=== PATIENT | male | born 1965 | race Two or more races ===

== ENCOUNTER 2023-11-26 12:17 | Inpatient (IN) | payer MEDICAID, OTHER ==
[~2023-11-26] VITALS: Ht 167.6 cm; Wt 82.8 kg
[~2023-11-26 12:17] MED LIST: ACET650T12 PO; CIPR500T4 PO; HYDR-4798 PO
[2023-11-26] MEDS: metroNIDAZOLE 500MG/100ML 100 ML IV ONE (13:30)
[2023-11-26 13:43] LABS: Basophils # (auto) 0.1 10 ^3/uL (0-0.2); Basophils % (auto) 0.7 % (0.0-2.0); Eosinophils # (auto) 0.2 10 ^3/uL (0-0.8); Eosinophils % (auto) 2.7 % (0.0-7.0); Hematocrit 38.7 % (41.0-53.0); Hemoglobin 13.2 g/dL (13.5-17.5); Lymphocytes # (auto) 0.8 10 ^3/uL (0.4-5.4); Lymphocytes % (auto) 11.7 % (10.0-50.0); Mean Corpuscular Hemoglobin 30.1 pg (28.0-32.0); Mean Corpuscular Hgb Conc. 34.1 g/dL (32.0-36.0); Mean Corpuscular Volume 88.2 fL (80.0-100.0); Monocytes # (auto) 0.7 10 ^3/uL (0-1.3); Neutrophils # (auto) 5.5 10 ^3/uL (1.6-8.6); Neutrophils % (auto) 75.9 % (37.0-80.0); Red Blood Cells 4.39 10^6/uL (4.5-5.90); Red Cell Distribution Width 13.7 % (11.8-14.3); White Blood Cell 7.2 10^3/uL (4.4-10.8)
[2023-11-26 14:02] LABS: Alanine Aminotransferase 13 U/L (7-40); Albumin 4.3 g/dL (3.2-4.8); Alkaline Phosphatase 107 U/L (46-116); Anion Gap 3 (5-15); Aspartate Aminotransferase 10 U/L (13-40); BUN/Creatinine Ratio 20.4 (10.0-20.0); Blood Urea Nitrogen 21 mg/dL (9-23); Calcium 9.8 mg/dL (8.5-10.1); Carbon Dioxide 29 mmol/L (20-30); Chloride 106 mmol/L (98-107); Glucose 248 mg/dL (74-106); Sodium 138 mmol/L (136-145)
[2023-11-26 14:03] LABS: Bilirubin, Total 0.9 mg/dL (0.2-1.0); Total Protein 7.2 g/dL (5.7-8.2)
[2023-11-26] MEDS ORDERED: LOSA-535 PO (14:28)
[2023-11-26] MEDS ORDERED: DEXTROSE (50%) 50ML SYRG IV PRN (14:30)
[2023-11-26] MEDS ORDERED: ONDANSETRON HCL 4 MG/2 ML VIAL IV PRN (14:30)
[2023-11-26] MEDS ORDERED: ACETAMINOPHEN 325 MG TAB PO PRN (14:30)
[2023-11-26 15:38] LABS: INR 0.98 (0.9-1.15); Prothrombin Time 10.4 sec (9.3-11.8)
[2023-11-26 15:42] VITALS: PULSE 82
[2023-11-26] MEDS: LIDOCAINE W/ EPINEPHRINE 1% 20ML VIAL ONE (16:49)
[2023-11-26] MEDS ORDERED: fentaNYL CITRATE 5 ML ONE (16:56)
[2023-11-26] MEDS ORDERED: MIDAZOLAM HCL 2MG/2ML 2ml VIAL (1mg/ml) ONE (16:56)
[2023-11-26] MEDS ORDERED: PROPOFOL 10 MG/ML 20 ML IV ONE (16:57)
[2023-11-26] MEDS: ceFAZolin 1GM VL ONE (16:59)
[2023-11-26] MEDS ORDERED: METOCLOPRAMIDE HCL 5MG/ml INJ 2ml VIAL ONE (17:00)
[2023-11-26] MEDS ORDERED: ONDANSETRON HCL 4 MG/2 ML VIAL ONE (17:00)
[2023-11-26] MEDS: CIPROFLOXACIN 400MG/200ML 200 ML IV ONE (17:01)
[2023-11-26] MEDS ORDERED: ePHEDrine SULFATE 50 MG/ML AMP ONE (17:17)
[2023-11-26] MEDS ORDERED: BACITRACIN TOP OINT 1 UD PKG TOP ONE (18:39)
[2023-11-26 18:58] VITALS: PULSE 101; RESP 15; O2SAT 99
[2023-11-26] MEDS ORDERED: ONDANSETRON HCL 4 MG/2 ML VIAL IV ONE (19:15)
[2023-11-26] MEDS: HYDROmorphone HCL 2 MG/ML VL/or syr IV PRN (19:31)
[2023-11-26] MEDS: hydrALAZINE HCL 20 MG/ML VL IV PRN ×2 (19:58→22:31)
[2023-11-26 21:00] VITALS: BP 165/105; PULSE 95; RESP 17; TEMP 97.4; O2SAT 100
[2023-11-26 21:15] VITALS: PULSE 95; RESP 17; O2SAT 100
[2023-11-26 21:16] VITALS: BP 165/101; PULSE 95; RESP 19; TEMP 97.4; O2SAT 100
[2023-11-26] MEDS: MORPHINE SULFATE INJ 2 MG/ml SYRG IV PRN (21:19)
[2023-11-26] MEDS: ACCU-CHEK COMFORT CURVE STRIP VI SCH (21:32)
[2023-11-26] MEDS: InsuLIN REG 1unit/0.01ml Soln (100units/ml) SC SCH (21:35)
[2023-11-27] VITALS (8 sets, daily range): BP systolic 101–134; BP diastolic 57–78; PULSE 77–88; RESP 17–19; TEMP 97.9–98.3; O2SAT 91–97
[2023-11-27] MEDS: HYDROcodone-ACET 5/325MG TAB PO PRN (02:32)
[2023-11-27] MEDS: ceFAZolin 2 GM/D5W50ml 50 ML IV ONE (03:45)
[2023-11-27 07:12] LABS: Basophils # (auto) 0 10 ^3/uL (0-0.2); Basophils % (auto) 0.5 % (0.0-2.0); Eosinophils # (auto) 0.1 10 ^3/uL (0-0.8); Eosinophils % (auto) 0.8 % (0.0-7.0); Hematocrit 35.8 % (41.0-53.0); Hemoglobin 12.3 g/dL (13.5-17.5); Lymphocytes # (auto) 0.7 10 ^3/uL (0.4-5.4); Lymphocytes % (auto) 9.1 % (10.0-50.0); Mean Corpuscular Hemoglobin 30.2 pg (28.0-32.0); Mean Corpuscular Hgb Conc. 34.2 g/dL (32.0-36.0); Mean Corpuscular Volume 88.4 fL (80.0-100.0); Monocytes # (auto) 0.8 10 ^3/uL (0-1.3); Monocytes % (auto) 10.2 % (0.0-12.0); Neutrophils # (auto) 6.3 10 ^3/uL (1.6-8.6); Neutrophils % (auto) 79.4 % (37.0-80.0); Red Blood Cells 4.05 10^6/uL (4.5-5.90); Red Cell Distribution Width 13.5 % (11.8-14.3); White Blood Cell 7.9 10^3/uL (4.4-10.8)
[2023-11-27 07:30] LABS: Alanine Aminotransferase 11 U/L (7-40); Alkaline Phosphatase 86 U/L (46-116); Calcium 8.9 mg/dL (8.5-10.1)
[2023-11-27 07:31] LABS: Albumin 3.7 g/dL (3.2-4.8); Anion Gap 5 (5-15); Aspartate Aminotransferase 9 U/L (13-40); BUN/Creatinine Ratio 16.5 (10.0-20.0); Blood Urea Nitrogen 18 mg/dL (9-23); Carbon Dioxide 29 mmol/L (20-30); Chloride 104 mmol/L (98-107); Glucose 283 mg/dL (74-106); Potassium 3.9 mmol/L (3.5-5.1); Sodium 138 mmol/L (136-145); Total Protein 6.2 g/dL (5.7-8.2)
[2023-11-27 08:15] LABS: Urine Bacteria None Seen /hpf (None Seen)
[2023-11-27 08:30] LABS: Urine Blood Negative /uL (Negative); Urine Clarity Clear (Clear); Urine Color Light-Yellow (Yellow); Urine Mucus FEW (None Seen); Urine Protein, UAD 1+ (Negative); Urine Specific Gravity 1.017 (1.001-1.035); Urine Urobilinogen Normal (Negative); Urine WBC 7 /hpf (0 - 3)
[2023-11-27] MEDS: PANTOPRAZOLE 40 MG/10 ML VIAL INJ IV SCH (08:36)
[2023-11-27] MEDS: LOSARTAN POTASSIUM 50 MG TAB PO SCH (08:39)
[2023-11-27] MEDS ORDERED: PATIENTS OWN MEDICATION (Losartan Potassium 1 TAB) PO SCH (10:00)
[2023-11-27] MEDS: INSULIN LANTUS (GLARGINE) 1 /0.01ml (100units/ml) SC SCH (16:00)
[2023-11-27] MEDS ORDERED: INSU1INJ19 SC (17:35)
[2023-11-27] MEDS ORDERED: CHOL50004 PO (17:35)
[2023-11-27] MEDS ORDERED: DAPA1TAB4 PO (17:35)
[2023-11-27] MEDS ORDERED: METF-370 PO (17:35)
[2023-11-27] MEDS: DOCUSATE SOD 100 MG CAP PO PRN (21:47)
[2023-11-28 01:00] VITALS: BP 125/68; PULSE 90; RESP 18; TEMP 98.1; O2SAT 93
[2023-11-28 05:00] VITALS: BP 118/68; PULSE 88; RESP 18; TEMP 98.4; O2SAT 92
[2023-11-28] MEDS ORDERED: INSULIN LANTUS (GLARGINE) 1 /0.01ml (100units/ml) SC SCH (07:00)
[2023-11-28 07:06] LABS: Basophils # (auto) 0 10 ^3/uL (0-0.2); Basophils % (auto) 0.3 % (0.0-2.0); Eosinophils # (auto) 0.1 10 ^3/uL (0-0.8); Eosinophils % (auto) 1.1 % (0.0-7.0); Hematocrit 35.9 % (41.0-53.0); Hemoglobin 12.1 g/dL (13.5-17.5); Lymphocytes # (auto) 0.7 10 ^3/uL (0.4-5.4); Lymphocytes % (auto) 8.1 % (10.0-50.0); Mean Corpuscular Hemoglobin 29.9 pg (28.0-32.0); Mean Corpuscular Hgb Conc. 33.6 g/dL (32.0-36.0); Monocytes # (auto) 0.9 10 ^3/uL (0-1.3); Monocytes % (auto) 10.1 % (0.0-12.0); Neutrophils # (auto) 7.2 10 ^3/uL (1.6-8.6); Neutrophils % (auto) 80.4 % (37.0-80.0); Red Blood Cells 4.04 10^6/uL (4.5-5.90); Red Cell Distribution Width 13.8 % (11.8-14.3)
[2023-11-28 07:16] LABS: Albumin 3.7 g/dL (3.2-4.8); Alkaline Phosphatase 85 U/L (46-116); Calcium 9.2 mg/dL (8.5-10.1); Chloride 106 mmol/L (98-107)
[2023-11-28 07:17] LABS: Anion Gap 2 (5-15); Aspartate Aminotransferase 9 U/L (13-40); BUN/Creatinine Ratio 20.4 (10.0-20.0); Blood Urea Nitrogen 21 mg/dL (9-23); Carbon Dioxide 28 mmol/L (20-30); Potassium 3.9 mmol/L (3.5-5.1); Sodium 136 mmol/L (136-145); Total Protein 6.2 g/dL (5.7-8.2)
[2023-11-28 07:18] LABS: Alanine Aminotransferase < 9 U/L (7-40); Glucose 132 mg/dL (74-106)
[2023-11-28 09:00] VITALS: BP 106/69; PULSE 95; RESP 16; TEMP 97.8; O2SAT 96
[2023-11-28 12:05] VITALS: BP 136/86; TEMP 36.9
[2023-11-28 13:00] VITALS: BP 126/69; PULSE 90; RESP 16; TEMP 97; O2SAT 95
== END 2023-11-28 16:00 | disposition home or self-care (01) | DRG 483 ==
LOC: ER 12:17 → OVERFLOW 14:28 → WEST WING 21:09
PROVIDERS: ADMIT Internal Medicine Pulmonary Disease; ATTEND Internal Medicine Pulmonary Disease
PROC: 0VPS0JZ Removal of Synthetic Substitute from Penis, Open Approach (ICD-10-PCS; 2023-11-26)
PROC: 0VUS0JZ Supplement Penis with Synthetic Substitute, Open Approach (ICD-10-PCS; principal; 2023-11-26 17:01)
DX: T83.490A Other mechanical complication of implanted penile prosthesis, initial encounter (principal); T81.31XA Disruption of external operation (surgical) wound, not elsewhere classified, initial encounter; T83.719A Erosion of other prosthetic materials to surrounding organ or tissue, initial encounter; E11.9 Type 2 diabetes mellitus without complications; I10 Essential (primary) hypertension; E78.5 Hyperlipidemia, unspecified; Z79.4 Long term (current) use of insulin; Z79.899 Other long term (current) drug therapy; Z90.49 Acquired absence of other specified parts of digestive tract; Y84.8 Other medical procedures as the cause of abnormal reaction of the patient, or of later complication, without mention of misadventure at the time of the procedure; Y92.89 Other specified places as the place of occurrence of the external cause
CPT/HCPCS: 36415; 80053; 81001; 82962; 83036; 83605; 85025; 85610; 85730; C9113; G0378; J0690; J1815; J2250; J2405; J2704

== ENCOUNTER 2023-12-18 17:41 | Emergency (ER) | payer MEDICAID ==
[~2023-12-18] VITALS: Ht 167.6 cm; Wt 85.5 kg
[~2023-12-18 17:41] MED LIST changes: +CHOL50004 PO; +DAPA1TAB4 PO; +INSU1INJ19 SC; +LOSA-535 PO; +METF-370 PO
[2023-12-18 19:16] LABS: Urine Bacteria None Seen /hpf (None Seen)
[2023-12-18 19:31] LABS: Urine Blood 1+ /uL (Negative); Urine Clarity Clear (Clear); Urine Color Yellow (Yellow); Urine Mucus FEW (None Seen); Urine Protein, UAD 2+ (Negative); Urine Specific Gravity 1.033 (1.001-1.035); Urine Urobilinogen 4 mg/dL (Negative); Urine WBC 1 /hpf (0 - 3)
[2023-12-18] MEDS ORDERED: HYDR-4798 PO (21:05)
[2023-12-18] MEDS: ONDANSETRON ODT 4 MG TAB PO ONE (21:40)
[2023-12-18 21:44] VITALS: BP 168/96; PULSE 86; RESP 16; TEMP 98; O2SAT 95
[2023-12-18] MEDS: MORPHINE SULFATE 4 MG/ML SYR/VIAL IM ONE (21:44)
== END 2023-12-18 21:44 | disposition home or self-care (01) ==
LOC: ER 17:41
DX: N48.89 Other specified disorders of penis (principal); I10 Essential (primary) hypertension; E11.9 Type 2 diabetes mellitus without complications; Z79.899 Other long term (current) drug therapy
CPT/HCPCS: 81001; 96372; 99283; J2270; Q0162

== ENCOUNTER 2023-12-19 22:12 | Inpatient (IN) | payer MEDICAID ==
[~2023-12-19] VITALS: Ht 167.6 cm; Wt 82.9 kg
[2023-12-19 22:40] VITALS: PULSE 75; RESP 20; O2SAT 91
[2023-12-19 23:31] LABS: Basophils # (auto) 0.1 10 ^3/uL (0-0.2); Basophils % (auto) 0.6 % (0.0-2.0); Eosinophils # (auto) 0 10 ^3/uL (0-0.8); Eosinophils % (auto) 0.5 % (0.0-7.0); Hematocrit 29.2 % (41.0-53.0); Hemoglobin 9.8 g/dL (13.5-17.5); Lymphocytes # (auto) 0.4 10 ^3/uL (0.4-5.4); Lymphocytes % (auto) 3.6 % (10.0-50.0); Mean Corpuscular Hemoglobin 29.4 pg (28.0-32.0); Mean Corpuscular Hgb Conc. 33.7 g/dL (32.0-36.0); Mean Corpuscular Volume 87.1 fL (80.0-100.0); Monocytes % (auto) 10.1 % (0.0-12.0); Neutrophils # (auto) 8.8 10 ^3/uL (1.6-8.6); Neutrophils % (auto) 85.2 % (37.0-80.0); Red Blood Cells 3.35 10^6/uL (4.5-5.90); Red Cell Distribution Width 14.5 % (11.8-14.3); White Blood Cell 10.3 10^3/uL (4.4-10.8)
[2023-12-19 23:51] LABS: Alanine Aminotransferase 52 U/L (7-40); Alkaline Phosphatase 534 U/L (46-116); Anion Gap 7 (5-15); Aspartate Aminotransferase 29 U/L (13-40); BUN/Creatinine Ratio 19.2 (10.0-20.0); Blood Urea Nitrogen 25 mg/dL (9-23); Calcium 8.9 mg/dL (8.7-10.4); Carbon Dioxide 27 mmol/L (20-30); Chloride 97 mmol/L (98-107); Potassium 4.2 mmol/L (3.5-5.1); Sodium 131 mmol/L (136-145)
[2023-12-19 23:52] LABS: Albumin 3.4 g/dL (3.2-4.8); Bilirubin, Total 0.9 mg/dL (0.2-1.0); Total Protein 6.3 g/dL (5.7-8.2)
[2023-12-19 23:53] LABS: Urine Bacteria None Seen /hpf (None Seen)
[2023-12-20 00:03] LABS: Glucose 513 mg/dL (74-106)
[2023-12-20 00:07] LABS: Urine Blood 1+ /uL (Negative); Urine Clarity Clear (Clear); Urine Color Yellow (Yellow); Urine Protein, UAD 2+ (Negative); Urine Specific Gravity 1.033 (1.001-1.035); Urine Urobilinogen 2 mg/dL (Negative); Urine WBC 1 /hpf (0 - 3)
[2023-12-20] MEDS ORDERED: InsuLIN REG 1unit/0.01ml Soln (100units/ml) IV ONE (00:30)
[2023-12-20 00:39] LABS: INR 1.12 (0.9-1.15); Partial Thromboplastin Time 25.9 SEC (24.5-34.5); Prothrombin Time 11.8 sec (9.3-11.8)
[2023-12-20] MEDS: FUROSEMIDE 20 MG/2 ML VIAL IV ONE (00:46)
[2023-12-20] MEDS: InsuLIN REG 1unit/0.01ml Soln (100units/ml) IV ONE (00:46)
[2023-12-20] MEDS: ONDANSETRON HCL 4 MG/2 ML VIAL IV ONE (00:46)
[2023-12-20] MEDS: MORPHINE SULFATE 4 MG/ML SYR/VIAL IV ONE (00:46)
[2023-12-20] MEDS: IOHEXOL 350 MG/ML 100ML IJ ONE (01:45)
[2023-12-20] MEDS: ASPirin 81 mg TAB PO ONE (03:32)
[2023-12-20] MEDS: NITROGLYCERIN 2% OINT 1GM PKG TD ONE (03:38)
[2023-12-20 07:25] VITALS: PULSE 65; RESP 14; O2SAT 94
[2023-12-20] MEDS ORDERED: MORPHINE SULFATE INJ 2 MG/ml SYRG IV PRN (10:30)
[2023-12-20] MEDS ORDERED: ACETAMINOPHEN 325 MG TAB PO PRN (10:30)
[2023-12-20] MEDS ORDERED: NITROGLYCERIN 0.4 MG SL TAB SL PRN (10:30)
[2023-12-20] MEDS ORDERED: DEXTROSE (50%) 50ML SYRG IV PRN (10:30)
[2023-12-20 10:55] LABS: Triglycerides 79 mg/dL (< 150)
[2023-12-20 10:56] LABS: LDL Cholesterol 76 mg/dL (< 100)
[2023-12-20 10:57] LABS: Cholesterol 127 mg/dL (< 200); HDL Cholesterol 35 mg/dL (40-59)
[2023-12-20 11:06] LABS: Basophils # (auto) 0.1 10 ^3/uL (0-0.2); Basophils % (auto) 0.6 % (0.0-2.0); Eosinophils # (auto) 0.1 10 ^3/uL (0-0.8); Eosinophils % (auto) 1.3 % (0.0-7.0)
[2023-12-20 11:08] LABS: Hematocrit 29.3 % (41.0-53.0); Lymphocytes # (auto) 0.5 10 ^3/uL (0.4-5.4); Lymphocytes % (auto) 4.3 % (10.0-50.0); Mean Corpuscular Hemoglobin 29.8 pg (28.0-32.0); Mean Corpuscular Hgb Conc. 34.1 g/dL (32.0-36.0); Mean Corpuscular Volume 87.3 fL (80.0-100.0); Monocytes # (auto) 1.1 10 ^3/uL (0-1.3); Monocytes % (auto) 10.1 % (0.0-12.0); Neutrophils # (auto) 9.2 10 ^3/uL (1.6-8.6); Neutrophils % (auto) 83.7 % (37.0-80.0); Nucleated Red Blood Cells % 0.1 %; Red Blood Cells 3.36 10^6/uL (4.5-5.90); Red Cell Distribution Width 14.2 % (11.8-14.3); White Blood Cell 10.9 10^3/uL (4.4-10.8)
[2023-12-20 11:10] LABS: Chloride 100 mmol/L (98-107); Potassium 4.4 mmol/L (3.5-5.1); Sodium 133 mmol/L (136-145)
[2023-12-20 11:11] LABS: Anion Gap 5 (5-15); Carbon Dioxide 28 mmol/L (20-30)
[2023-12-20 11:12] LABS: Calcium 8.7 mg/dL (8.5-10.1)
[2023-12-20 11:17] LABS: BUN/Creatinine Ratio 15.1 (10.0-20.0); Blood Urea Nitrogen 18 mg/dL (9-23)
[2023-12-20 11:18] LABS: Glucose 332 mg/dL (74-106)
[2023-12-20] MEDS: ACCU-CHEK COMFORT CURVE STRIP VI SCH (11:30)
[2023-12-20] MEDS: InsuLIN REG 1unit/0.01ml Soln (100units/ml) SC SCH (12:29)
[2023-12-20] MEDS: ASPirin 325 MG TAB PO ONE (12:58)
[2023-12-20 18:56] LABS: COVID19 ANTIGEN SOFIA FIA NEGATIVE (NEGATIVE); Rapid Influenza A Negative (Negative); Rapid Influenza B Negative (Negative)
[2023-12-20] MEDS: hydrALAZINE HCL 20 MG/ML VL IV PRN (19:10)
[2023-12-20] MEDS: HYDROcodone-ACET 5/325MG TAB PO PRN (20:28)
[2023-12-20 21:00] VITALS: BP 128/65; PULSE 89; RESP 18; TEMP 98; O2SAT 97
[2023-12-21] VITALS (9 sets, daily range): BP systolic 115–159; BP diastolic 44–86; PULSE 73–92; RESP 15–22; TEMP 97.3–98.5; O2SAT 93–97
[2023-12-21 06:24] LABS: Eosinophils # (auto) 0.1 10 ^3/uL (0-0.8); Eosinophils % (auto) 1.2 % (0.0-7.0); Hemoglobin 10.1 g/dL (13.5-17.5); Monocytes # (auto) 1.1 10 ^3/uL (0-1.3); Nucleated Red Blood Cells % 0.1 %
[2023-12-21 06:27] LABS: Basophils # (auto) 0.1 10 ^3/uL (0-0.2); Basophils % (auto) 0.5 % (0.0-2.0); Hematocrit 29.6 % (41.0-53.0); Lymphocytes # (auto) 0.6 10 ^3/uL (0.4-5.4); Lymphocytes % (auto) 5.9 % (10.0-50.0); Mean Corpuscular Hemoglobin 29.3 pg (28.0-32.0); Mean Corpuscular Hgb Conc. 34.1 g/dL (32.0-36.0); Mean Corpuscular Volume 85.9 fL (80.0-100.0); Monocytes % (auto) 10.3 % (0.0-12.0); Neutrophils % (auto) 82.1 % (37.0-80.0); Red Blood Cells 3.45 10^6/uL (4.5-5.90); Red Cell Distribution Width 14.8 % (11.8-14.3)
[2023-12-21 06:41] LABS: Alanine Aminotransferase 46 U/L (7-40); Albumin 3.5 g/dL (3.2-4.8); Alkaline Phosphatase 591 U/L (46-116); Anion Gap 6 (5-15); BUN/Creatinine Ratio 21.8 (10.0-20.0); Blood Urea Nitrogen 26 mg/dL (9-23); Carbon Dioxide 28 mmol/L (20-30); Chloride 102 mmol/L (98-107); Potassium 3.9 mmol/L (3.5-5.1); Sodium 136 mmol/L (136-145)
[2023-12-21 06:42] LABS: Aspartate Aminotransferase 31 U/L (13-40); Total Protein 6.4 g/dL (5.7-8.2)
[2023-12-21 06:44] LABS: Glucose 172 mg/dL (74-106)
[2023-12-21] MEDS: ENOXAPARIN SOD 40 MG/0.4 ML SYRINGE SC SCH (09:16)
[2023-12-21] MEDS: ASPirin 81 mg TAB PO SCH (09:16)
[2023-12-21] MEDS: LOSARTAN POTASSIUM 50 MG TAB PO SCH (09:16)
[2023-12-21 09:22] LABS: Amphetamine Screen, Urine Neg (NEGATIVE); Barbiturate Scree,Urine Neg (NEGATIVE); Benzodiazephine Screen, Urine Neg (NEGATIVE); Cocaine Screen, Urine Neg (NEGATIVE); Opiate Scree,Urine Pos (NEGATIVE); Phencyclidine Screen, Urine Neg (NEGATIVE)
[2023-12-21 09:23] LABS: Cannabinoid Screen, Urine Neg (NEGATIVE)
[2023-12-21] MEDS ORDERED: DEXTROSE (50%) 50ML SYRG IV PRN (15:45)
[2023-12-21] MEDS: FUROSEMIDE 40 MG/4 ML VIAL IV SCH (16:57)
[2023-12-21] MEDS: ACCU-CHEK COMFORT CURVE STRIP VI SCH (16:58)
[2023-12-21] MEDS: InsuLIN REG 1unit/0.01ml Soln (100units/ml) SC SCH ×2 (16:59→21:17)
[2023-12-21] MEDS: INSULIN LANTUS (GLARGINE) 1 /0.01ml (100units/ml) SC SCH (21:18)
[2023-12-22] VITALS (9 sets, daily range): BP systolic 104–177; BP diastolic 48–96; PULSE 76–90; RESP 16–20; TEMP 97.4–98.6; O2SAT 94–97
[2023-12-22] MEDS: CLOTRIMAZOLE 1 % CREAM 15GM TOP SCH (13:00)
[2023-12-22] MEDS: MAGNESIUM CITRATE SOLUTION 300 ML BTL PO ONE (13:00)
[2023-12-22] MEDS ORDERED: DEXTROSE (50%) 50ML SYRG IV PRN (19:30)
[2023-12-22] MEDS: InsuLIN REG 1unit/0.01ml Soln (100units/ml) SC SCH (20:00)
[2023-12-22] MEDS: ACCU-CHEK COMFORT CURVE STRIP VI SCH (20:00)
[2023-12-22] MEDS: DOCUSATE SOD 100 MG CAP PO SCH (21:24)
[2023-12-22] MEDS: FUROSEMIDE 40 MG/4 ML VIAL IV SCH (21:25)
[2023-12-23] VITALS (9 sets, daily range): BP systolic 113–191; BP diastolic 47–111; PULSE 75–96; RESP 16–20; TEMP 97.9–98.6; O2SAT 95–97
[2023-12-23 08:25] LABS: Eosinophils # (auto) 0.1 10 ^3/uL (0-0.8); Hemoglobin 10.6 g/dL (13.5-17.5); Lymphocytes # (auto) 0.5 10 ^3/uL (0.4-5.4); Mean Corpuscular Hemoglobin 28.6 pg (28.0-32.0); Neutrophils # (auto) 8.5 10 ^3/uL (1.6-8.6); Red Blood Cells 3.72 10^6/uL (4.5-5.90)
[2023-12-23 08:28] LABS: Basophils # (auto) 0 10 ^3/uL (0-0.2); Basophils % (auto) 0.4 % (0.0-2.0); Eosinophils % (auto) 0.6 % (0.0-7.0); Hematocrit 31.8 % (41.0-53.0); Lymphocytes % (auto) 4.6 % (10.0-50.0); Mean Corpuscular Hgb Conc. 33.4 g/dL (32.0-36.0); Mean Corpuscular Volume 85.5 fL (80.0-100.0); Monocytes % (auto) 9.6 % (0.0-12.0); Neutrophils % (auto) 84.8 % (37.0-80.0); Red Cell Distribution Width 14.7 % (11.8-14.3); White Blood Cell 10.1 10^3/uL (4.4-10.8)
[2023-12-23] MEDS ORDERED: DEXTROSE (50%) 50ML SYRG IV PRN ×3 (08:30→13:30)
[2023-12-23 08:56] LABS: Alanine Aminotransferase 41 U/L (7-40); Albumin 3.6 g/dL (3.2-4.8); Alkaline Phosphatase 550 U/L (46-116); Anion Gap 5 (5-15); Aspartate Aminotransferase 20 U/L (13-40); BUN/Creatinine Ratio 22.2 (10.0-20.0); Blood Urea Nitrogen 24 mg/dL (9-23); Calcium 9.3 mg/dL (8.7-10.4); Carbon Dioxide 31 mmol/L (20-30); Chloride 99 mmol/L (98-107); Glucose 176 mg/dL (74-106); Potassium 3.9 mmol/L (3.5-5.1); Sodium 135 mmol/L (136-145)
[2023-12-23 08:57] LABS: Bilirubin, Total 0.8 mg/dL (0.2-1.0); Total Protein 6.6 g/dL (5.7-8.2)
[2023-12-23] MEDS ORDERED: InsuLIN REG 1unit/0.01ml Soln (100units/ml) SC SCH (12:00)
[2023-12-23] MEDS: ACCU-CHEK COMFORT CURVE STRIP VI SCH ×3 (12:00→17:54)
[2023-12-23] MEDS: InsuLIN REG 1unit/0.01ml Soln (100units/ml) SC SCH ×3 (12:01→22:08)
[2023-12-23] MEDS: NIFEdipine ER 30 MG TAB PO ONE (17:53)
[2023-12-23] MEDS ORDERED: INSULIN LANTUS (GLARGINE) 1 /0.01ml (100units/ml) SC SCH (22:00)
[2023-12-24] VITALS (7 sets, daily range): BP systolic 138–150; BP diastolic 64–82; PULSE 73–88; RESP 17–20; TEMP 97.4–98; O2SAT 95–98
[2023-12-24 07:21] LABS: Basophils # (auto) 0.1 10 ^3/uL (0-0.2); Hemoglobin 10.7 g/dL (13.5-17.5); Lymphocytes # (auto) 0.6 10 ^3/uL (0.4-5.4); Mean Corpuscular Hemoglobin 29.4 pg (28.0-32.0); Mean Corpuscular Hgb Conc. 34.1 g/dL (32.0-36.0); Monocytes # (auto) 0.9 10 ^3/uL (0-1.3); Neutrophils # (auto) 6.4 10 ^3/uL (1.6-8.6); White Blood Cell 8.3 10^3/uL (4.4-10.8)
[2023-12-24 07:22] LABS: Basophils % (auto) 0.9 % (0.0-2.0); Eosinophils # (auto) 0.2 10 ^3/uL (0-0.8); Eosinophils % (auto) 2.7 % (0.0-7.0); Hematocrit 31.2 % (41.0-53.0); Lymphocytes % (auto) 7.4 % (10.0-50.0); Mean Corpuscular Volume 86.3 fL (80.0-100.0); Monocytes % (auto) 11.3 % (0.0-12.0); Neutrophils % (auto) 77.7 % (37.0-80.0); Red Blood Cells 3.62 10^6/uL (4.5-5.90); Red Cell Distribution Width 14.7 % (11.8-14.3)
[2023-12-24 07:38] LABS: Alanine Aminotransferase 31 U/L (7-40); Albumin 3.4 g/dL (3.2-4.8); Alkaline Phosphatase 445 U/L (46-116); Anion Gap 6 (5-15); Aspartate Aminotransferase 15 U/L (13-40); Bilirubin, Total 0.7 mg/dL (0.2-1.0); Blood Urea Nitrogen 23 mg/dL (9-23); Calcium 9.4 mg/dL (8.7-10.4); Carbon Dioxide 31 mmol/L (20-30); Chloride 99 mmol/L (98-107); Glucose 121 mg/dL (74-106); Sodium 136 mmol/L (136-145); Total Protein 6.4 g/dL (5.7-8.2)
[2023-12-24] MEDS: NIFEdipine ER 30 MG TAB PO SCH (09:16)
[2023-12-24 19:18] LABS: Body Fluid Polymorphonuclear 30 % (0-25); Body Fluid Red Blood Cells 255 CUMM (0-2000); Body Fluid White Blood Cells 208 CUMM (0-200)
[2023-12-25] VITALS (8 sets, daily range): BP systolic 115–158; BP diastolic 68–85; PULSE 74–83; RESP 16–18; TEMP 97.6–98.8; O2SAT 93–96
[2023-12-25 07:55] LABS: Basophils # (auto) 0.1 10 ^3/uL (0-0.2); Hematocrit 33.9 % (41.0-53.0); Hemoglobin 11.5 g/dL (13.5-17.5); Monocytes # (auto) 0.8 10 ^3/uL (0-1.3); Nucleated Red Blood Cells % 0.1 %; White Blood Cell 8.3 10^3/uL (4.4-10.8)
[2023-12-25 07:58] LABS: Basophils % (auto) 1.1 % (0.0-2.0); Eosinophils # (auto) 0.3 10 ^3/uL (0-0.8); Eosinophils % (auto) 3.2 % (0.0-7.0); Lymphocytes # (auto) 0.6 10 ^3/uL (0.4-5.4); Lymphocytes % (auto) 6.8 % (10.0-50.0); Mean Corpuscular Hemoglobin 29.2 pg (28.0-32.0); Mean Corpuscular Volume 85.8 fL (80.0-100.0); Monocytes % (auto) 9.1 % (0.0-12.0); Neutrophils # (auto) 6.6 10 ^3/uL (1.6-8.6); Neutrophils % (auto) 79.8 % (37.0-80.0); Red Blood Cells 3.95 10^6/uL (4.5-5.90); Red Cell Distribution Width 14.8 % (11.8-14.3)
[2023-12-25 08:06] LABS: Anion Gap 5 (5-15); Carbon Dioxide 32 mmol/L (20-30); Chloride 97 mmol/L (98-107); Potassium 4.5 mmol/L (3.5-5.1); Sodium 134 mmol/L (136-145)
[2023-12-25 08:08] LABS: Calcium 9.8 mg/dL (8.7-10.4)
[2023-12-25 08:12] LABS: BUN/Creatinine Ratio 23.5 (10.0-20.0); Blood Urea Nitrogen 28 mg/dL (9-23); Glucose 165 mg/dL (74-106)
[2023-12-25] MEDS: NIFEdipine ER 30 MG TAB PO SCH (09:57)
[2023-12-26] VITALS (12 sets, daily range): BP systolic 121–133; BP diastolic 51–78; PULSE 74–94; RESP 16–20; TEMP 98–98.6; O2SAT 92–98
[2023-12-26 07:02] LABS: Anion Gap 4 (5-15); Carbon Dioxide 33 mmol/L (20-30); Chloride 97 mmol/L (98-107); Potassium 4.7 mmol/L (3.5-5.1); Sodium 134 mmol/L (136-145)
[2023-12-26 07:04] LABS: Basophils # (auto) 0.1 10 ^3/uL (0-0.2); Basophils % (auto) 0.9 % (0.0-2.0); Calcium 9.7 mg/dL (8.7-10.4); Hematocrit 35.1 % (41.0-53.0); Lymphocytes # (auto) 0.7 10 ^3/uL (0.4-5.4); Monocytes # (auto) 0.9 10 ^3/uL (0-1.3); Red Blood Cells 4.08 10^6/uL (4.5-5.90); Red Cell Distribution Width 14.4 % (11.8-14.3)
[2023-12-26 07:08] LABS: BUN/Creatinine Ratio 23.2 (10.0-20.0); Blood Urea Nitrogen 29 mg/dL (9-23); Eosinophils # (auto) 0.3 10 ^3/uL (0-0.8); Eosinophils % (auto) 2.7 % (0.0-7.0); Glucose 183 mg/dL (74-106); Hemoglobin 12.2 g/dL (13.5-17.5); Lymphocytes % (auto) 7.7 % (10.0-50.0); Mean Corpuscular Hemoglobin 29.9 pg (28.0-32.0); Mean Corpuscular Hgb Conc. 34.8 g/dL (32.0-36.0); Mean Corpuscular Volume 85.9 fL (80.0-100.0); Monocytes % (auto) 9.5 % (0.0-12.0); Neutrophils # (auto) 7.3 10 ^3/uL (1.6-8.6); Neutrophils % (auto) 79.2 % (37.0-80.0); White Blood Cell 9.2 10^3/uL (4.4-10.8)
[2023-12-26] MEDS: cefTRIAXone 1GM/50ML D5W 50 ML IV SCH (10:14)
[2023-12-26] MEDS: IPRATROPIUM BROM 0.5 MG/2.5ML INH SOL NEB SCH (11:55)
[2023-12-26] MEDS: ALBUTEROL SULF 2.5 MG/0.5ML(0.5%) NEB SOLN NEB SCH (11:55)
[2023-12-26] MEDS: AZITHROMYCIN 500MG/ 250ML 250 ML IV SCH (11:57)
[2023-12-26 12:06] LABS: Albumin, Body Fluid 1.5 g/dL (Not Estab.); Protein, Body Fluid 2.3 g/dL (.)
[2023-12-26] MEDS: SODIUM CHLORIDE 0.9% 1,000 ML IV ONE (12:15)
[2023-12-26] MEDS: INSULIN LANTUS (GLARGINE) 1 /0.01ml (100units/ml) SC ONE (19:20)
[2023-12-27] VITALS (18 sets, daily range): BP systolic 102–158; BP diastolic 60–80; PULSE 73–94; RESP 15–18; TEMP 97.4–98.5; O2SAT 96–100
[2023-12-27 05:09] LABS: Basophils # (auto) 0.1 10 ^3/uL (0-0.2); Basophils % (auto) 1.2 % (0.0-2.0); Eosinophils # (auto) 0.2 10 ^3/uL (0-0.8); Eosinophils % (auto) 3.1 % (0.0-7.0); Lymphocytes # (auto) 0.7 10 ^3/uL (0.4-5.4); Monocytes % (auto) 12.4 % (0.0-12.0)
[2023-12-27 05:12] LABS: Hematocrit 31.5 % (41.0-53.0); Hemoglobin 10.9 g/dL (13.5-17.5); Lymphocytes % (auto) 8.7 % (10.0-50.0); Mean Corpuscular Hemoglobin 29.4 pg (28.0-32.0); Mean Corpuscular Hgb Conc. 34.6 g/dL (32.0-36.0); Mean Corpuscular Volume 84.8 fL (80.0-100.0); Neutrophils # (auto) 5.9 10 ^3/uL (1.6-8.6); Neutrophils % (auto) 74.6 % (37.0-80.0); Red Blood Cells 3.71 10^6/uL (4.5-5.90); Red Cell Distribution Width 14.2 % (11.8-14.3)
[2023-12-27 05:23] LABS: Anion Gap 5 (5-15); Carbon Dioxide 32 mmol/L (20-30); Chloride 99 mmol/L (98-107); Potassium 4.2 mmol/L (3.5-5.1); Sodium 136 mmol/L (136-145)
[2023-12-27 05:24] LABS: Calcium 9.3 mg/dL (8.7-10.4)
[2023-12-27 05:29] LABS: Glucose 135 mg/dL (74-106)
[2023-12-27 05:52] LABS: Blood Urea Nitrogen 41 mg/dL (9-23)
[2023-12-27] MEDS: INSULIN LANTUS (GLARGINE) 1 /0.01ml (100units/ml) SC SCH (06:17)
[2023-12-27] MEDS: IODIXANOL 320MG/ML 100ML BTL IV ONE ×3 (07:29→08:49)
[2023-12-27] MEDS: VERAPAMIL 2.5MG/ML INJ 2ML VIAL IV ONE (07:47)
[2023-12-27] MEDS: HEPARIN SODIUM (PORCINE) 5000 UNITS/ML 1ML VIAL ONE (07:47)
[2023-12-27] MEDS: ANGIOMAX 250 MG VIAL IV ONE (07:47)
[2023-12-27] MEDS: fentaNYL CITRATE 100 MCG/2 ML VL ONE (07:48)
[2023-12-27] MEDS: MIDAZOLAM HCL 2MG/2ML 2ml VIAL (1mg/ml) ONE (07:49)
[2023-12-27] MEDS: SODIUM CHL 0.9% 50 ML ONE (07:49)
[2023-12-27] MEDS: LIDOCAINE 2%HCL (LOCAL ANESTH.) INJ 20ML MDV ONE (07:51)
[2023-12-27] MEDS: ATROPINE SULF 1 MG/10ml SYR ONE (08:15)
[2023-12-27] MEDS: CLOPIDOGREL BISULFATE 75 MG TAB ONE (08:49)
[2023-12-27] MEDS: SACUBITRIL-VALSARTAN 24mg/26mg TAB PO SCH (10:32)
[2023-12-27] MEDS: EMPAGLIFLOZIN 10 MG TAB PO SCH (10:32)
[2023-12-27] MEDS: METOPROLOL SUCCINATE XL 50 MG TAB PO SCH (10:43)
[2023-12-27] MEDS: ATORVASTATIN 20 MG TAB PO SCH (21:05)
[2023-12-28] VITALS (14 sets, daily range): BP systolic 99–177; BP diastolic 59–95; PULSE 66–94; RESP 16–20; TEMP 97.6–98.7; O2SAT 90–100
[2023-12-28 06:21] LABS: Basophils # (auto) 0.1 10 ^3/uL (0-0.2); Eosinophils # (auto) 0.2 10 ^3/uL (0-0.8); Eosinophils % (auto) 2.5 % (0.0-7.0); Hemoglobin 11.4 g/dL (13.5-17.5); Monocytes # (auto) 1.1 10 ^3/uL (0-1.3); Red Cell Distribution Width 14.6 % (11.8-14.3)
[2023-12-28 06:27] LABS: Basophils % (auto) 1.1 % (0.0-2.0); Hematocrit 33.7 % (41.0-53.0); Lymphocytes # (auto) 0.7 10 ^3/uL (0.4-5.4); Lymphocytes % (auto) 7.4 % (10.0-50.0); Mean Corpuscular Hemoglobin 29.1 pg (28.0-32.0); Mean Corpuscular Hgb Conc. 33.9 g/dL (32.0-36.0); Mean Corpuscular Volume 85.7 fL (80.0-100.0); Monocytes % (auto) 11.4 % (0.0-12.0); Neutrophils # (auto) 7.2 10 ^3/uL (1.6-8.6); Neutrophils % (auto) 77.6 % (37.0-80.0); Red Blood Cells 3.93 10^6/uL (4.5-5.90); White Blood Cell 9.3 10^3/uL (4.4-10.8)
[2023-12-28 06:39] LABS: Alanine Aminotransferase 29 U/L (7-40); Albumin 3.7 g/dL (3.2-4.8); Alkaline Phosphatase 335 U/L (46-116); Anion Gap 6 (5-15); Aspartate Aminotransferase 19 U/L (13-40); BUN/Creatinine Ratio 30.6 (10.0-20.0); Bilirubin, Total 0.6 mg/dL (0.2-1.0); Blood Urea Nitrogen 41 mg/dL (9-23); Calcium 9.2 mg/dL (8.7-10.4); Carbon Dioxide 31 mmol/L (20-30); Chloride 99 mmol/L (98-107); Glucose 229 mg/dL (74-106); Potassium 4.1 mmol/L (3.5-5.1); Sodium 136 mmol/L (136-145)
[2023-12-28 06:40] LABS: Total Protein 6.7 g/dL (5.7-8.2)
[2023-12-28] MEDS: CLOPIDOGREL BISULFATE 75 MG TAB PO SCH (09:39)
[2023-12-28] MEDS ORDERED: CLOPIDOGREL BISULFATE 75 MG TAB PO SCH (10:00)
[2023-12-28] MEDS ORDERED: ASPI-325 PO (15:32)
[2023-12-28] MEDS ORDERED: SACU1TAB PO (15:32)
[2023-12-28] MEDS ORDERED: FURO1TAB33 PO (15:32)
[2023-12-28] MEDS ORDERED: METO-6 PO (15:32)
[2023-12-28] MEDS ORDERED: CLOP75TA70 PO (15:32)
[2023-12-28] MEDS: INSULIN LANTUS (GLARGINE) 1 /0.01ml (100units/ml) SC SCH (21:09)
[2023-12-29] VITALS (9 sets, daily range): BP systolic 110–173; BP diastolic 65–95; PULSE 60–87; RESP 16–20; TEMP 97.4–98.6; O2SAT 94–100
[2023-12-29 07:32] LABS: Basophils # (auto) 0.1 10 ^3/uL (0-0.2); Eosinophils # (auto) 0.3 10 ^3/uL (0-0.8); Hemoglobin 12.7 g/dL (13.5-17.5); Lymphocytes # (auto) 0.9 10 ^3/uL (0.4-5.4)
[2023-12-29 07:34] LABS: Eosinophils % (auto) 2.8 % (0.0-7.0); Hematocrit 37.5 % (41.0-53.0); Lymphocytes % (auto) 8.7 % (10.0-50.0); Mean Corpuscular Hemoglobin 29.3 pg (28.0-32.0); Mean Corpuscular Hgb Conc. 33.9 g/dL (32.0-36.0); Mean Corpuscular Volume 86.6 fL (80.0-100.0); Monocytes % (auto) 9.3 % (0.0-12.0); Neutrophils # (auto) 8.2 10 ^3/uL (1.6-8.6); Neutrophils % (auto) 78.2 % (37.0-80.0); Red Blood Cells 4.33 10^6/uL (4.5-5.90); Red Cell Distribution Width 14.8 % (11.8-14.3); White Blood Cell 10.5 10^3/uL (4.4-10.8)
[2023-12-29 07:43] LABS: Chloride 98 mmol/L (98-107); Sodium 137 mmol/L (136-145)
[2023-12-29 07:44] LABS: Anion Gap 12 (5-15); Carbon Dioxide 27 mmol/L (20-30)
[2023-12-29 07:45] LABS: Calcium 9.9 mg/dL (8.7-10.4)
[2023-12-29 07:49] LABS: BUN/Creatinine Ratio 32.4 (10.0-20.0); Blood Urea Nitrogen 44 mg/dL (9-23)
[2023-12-29 07:53] LABS: Glucose 119 mg/dL (74-106)
== END 2023-12-29 15:10 | disposition home or self-care (01) | DRG 174 ==
LOC: EDBD 22:12 → ER 22:12 → TELE 12-20 10:24 → TELE-EAST 12-20 18:46
PROVIDERS: ADMIT Internal Medicine Geriatric Medicine; ATTEND Internal Medicine Geriatric Medicine
PROC: 0W993ZZ Drainage of Right Pleural Cavity, Percutaneous Approach (ICD-10-PCS; principal; 2023-12-24)
PROC: 027135Z Dilation of Coronary Artery, Two Arteries with Two Drug-eluting Intraluminal Devices, Percutaneous Approach (ICD-10-PCS; 2023-12-27)
PROC: 4A023N7 Measurement of Cardiac Sampling and Pressure, Left Heart, Percutaneous Approach (ICD-10-PCS; 2023-12-27)
PROC: B211YZZ Fluoroscopy of Multiple Coronary Arteries using Other Contrast (ICD-10-PCS; 2023-12-27)
DX: I21.4 Non-ST elevation (NSTEMI) myocardial infarction (principal); J96.01 Acute respiratory failure with hypoxia; I50.33 Acute on chronic diastolic (congestive) heart failure; I27.20 Pulmonary hypertension, unspecified; J91.8 Pleural effusion in other conditions classified elsewhere; D63.8 Anemia in other chronic diseases classified elsewhere; I11.0 Hypertensive heart disease with heart failure; B35.6 Tinea cruris; Z20.822 Contact with and (suspected) exposure to COVID-19; E66.01 Morbid (severe) obesity due to excess calories; E78.5 Hyperlipidemia, unspecified; I16.0 Hypertensive urgency; N50.82 Scrotal pain; K59.00 Constipation, unspecified; E11.9 Type 2 diabetes mellitus without complications; E86.0 Dehydration; I25.10 Atherosclerotic heart disease of native coronary artery without angina pectoris; Z79.4 Long term (current) use of insulin; Z79.84 Long term (current) use of oral hypoglycemic drugs; Z85.038 Personal history of other malignant neoplasm of large intestine; Z90.49 Acquired absence of other specified parts of digestive tract; Z91.199 Patient's noncompliance with other medical treatment and regimen due to unspecified reason; Z68.29 Body mass index [BMI] 29.0-29.9, adult
CPT/HCPCS: 36415; 71045; 71275; 74178; 76604; 80048; 80053; 80061; 80307; 81001; 82962; 83880; 83930; 83986; 84443; 84484; 85025; 85379; 85610; 85730; 86850; 86900; 86901; 87205; 87426; 87804; 89051; 93306; 94640; 96374; 96375; 97110; 97116; 97163; 97530; 99152; 99291; C1874; G0378; J1815; J2250; J2405; Q9967

== ENCOUNTER 2024-01-13 18:56 | Emergency (ER) | payer MEDICAID ==
[~2024-01-13] VITALS: Ht 167.6 cm; Wt 78.6 kg
[~2024-01-13 18:56] MED LIST changes: +ASPI-325 PO; -CIPR500T4 PO; +CLOP75TA70 PO; +FURO1TAB33 PO; +METO-6 PO; +SACU1TAB PO
[2024-01-13 20:42] LABS: Basophils # (auto) 0 10 ^3/uL (0-0.2); Basophils % (auto) 0.5 % (0.0-2.0); Eosinophils # (auto) 0.2 10 ^3/uL (0-0.8); Eosinophils % (auto) 1.6 % (0.0-7.0); Hematocrit 28.7 % (41.0-53.0); Hemoglobin 9.7 g/dL (13.5-17.5); Lymphocytes # (auto) 0.9 10 ^3/uL (0.4-5.4); Lymphocytes % (auto) 8.8 % (10.0-50.0); Mean Corpuscular Hemoglobin 28.7 pg (28.0-32.0); Mean Corpuscular Hgb Conc. 33.7 g/dL (32.0-36.0); Mean Corpuscular Volume 85.1 fL (80.0-100.0); Monocytes # (auto) 0.8 10 ^3/uL (0-1.3); Monocytes % (auto) 8.4 % (0.0-12.0); Neutrophils # (auto) 7.9 10 ^3/uL (1.6-8.6); Neutrophils % (auto) 80.7 % (37.0-80.0); Nucleated Red Blood Cells % 0.1 %; Red Blood Cells 3.38 10^6/uL (4.5-5.90); Red Cell Distribution Width 14.8 % (11.8-14.3); White Blood Cell 9.8 10^3/uL (4.4-10.8)
[2024-01-13 20:58] LABS: INR 1.04 (0.9-1.15); Partial Thromboplastin Time 25.6 SEC (24.5-34.5)
[2024-01-13 21:08] LABS: Alanine Aminotransferase 24 U/L (7-40); Albumin 3.6 g/dL (3.2-4.8); Alkaline Phosphatase 191 U/L (46-116); Anion Gap 6 (5-15); Aspartate Aminotransferase 17 U/L (13-40); BUN/Creatinine Ratio 14.2 (10.0-20.0); Bilirubin, Total 0.5 mg/dL (0.2-1.0); Blood Urea Nitrogen 22 mg/dL (9-23); Calcium 9.1 mg/dL (8.7-10.4); Carbon Dioxide 29 mmol/L (20-30); Chloride 105 mmol/L (98-107); Glucose 334 mg/dL (74-106); Magnesium 1.9 mg/dL (1.6-2.6); Sodium 140 mmol/L (136-145); Total Protein 6.9 g/dL (5.7-8.2)
[2024-01-13 21:27] LABS: Urine Blood TRACE /uL (Negative); Urine Clarity Clear (Clear); Urine Color Yellow (Yellow); Urine Protein, UAD 3+ (Negative); Urine Specific Gravity 1.025 (1.001-1.035); Urine Urobilinogen Normal (Negative); Urine pH 6.5 (5.0-9.0)
[2024-01-13] MEDS: HYDROcodone-ACET 5/325MG TAB PO ONE (22:49)
[2024-01-13 23:19] VITALS: PULSE 91; RESP 18; O2SAT 93
[2024-01-14 03:37] VITALS: BP 138/78; PULSE 78; RESP 14; TEMP 98.8; O2SAT 95
[2024-01-14] MEDS ORDERED: NAP500T GT (04:10)
[2024-01-14] MEDS: KETOROLAC TROMETH 60MG/2ML VIAL IM ONE (04:35)
== END 2024-01-14 04:35 | disposition home or self-care (01) ==
LOC: ER 18:56
DX: T83.9XXD Unspecified complication of genitourinary prosthetic device, implant and graft, subsequent encounter (principal); N48.89 Other specified disorders of penis; I11.0 Hypertensive heart disease with heart failure; I50.9 Heart failure, unspecified; E11.9 Type 2 diabetes mellitus without complications; Z85.9 Personal history of malignant neoplasm, unspecified; Z98.890 Other specified postprocedural states; Z79.899 Other long term (current) drug therapy; Y92.89 Other specified places as the place of occurrence of the external cause
CPT/HCPCS: 36415; 71045; 80053; 81003; 82010; 82962; 83735; 83880; 84484; 85025; 85610; 85730; 93005

== ENCOUNTER 2024-01-20 14:07 | Inpatient (IN) | payer MEDICAID ==
[~2024-01-20] VITALS: Ht 167.6 cm; Wt 78.2 kg
[~2024-01-20 14:07] MED LIST changes: +NAP500T GT
[2024-01-20 14:47] LABS: Basophils # (auto) 0.1 10 ^3/uL (0-0.2); Basophils % (auto) 0.8 % (0.0-2.0); Eosinophils # (auto) 0.2 10 ^3/uL (0-0.8); Hematocrit 27.3 % (41.0-53.0); Hemoglobin 9.1 g/dL (13.5-17.5); Lymphocytes # (auto) 0.7 10 ^3/uL (0.4-5.4); Lymphocytes % (auto) 8.8 % (10.0-50.0); Mean Corpuscular Hemoglobin 29.1 pg (28.0-32.0); Mean Corpuscular Hgb Conc. 33.3 g/dL (32.0-36.0); Mean Corpuscular Volume 87.3 fL (80.0-100.0); Monocytes # (auto) 0.8 10 ^3/uL (0-1.3); Monocytes % (auto) 9.3 % (0.0-12.0); Neutrophils # (auto) 6.5 10 ^3/uL (1.6-8.6); Neutrophils % (auto) 79.1 % (37.0-80.0); Platelet Count (auto) 360 10^3/uL (140-450); Red Blood Cells 3.13 10^6/uL (4.5-5.90); Red Cell Distribution Width 15.6 % (11.8-14.3); White Blood Cell 8.2 10^3/uL (4.4-10.8)
[2024-01-20 14:57] LABS: INR 1.01 (0.9-1.15); Partial Thromboplastin Time 25.7 SEC (24.5-34.5); Prothrombin Time 10.7 sec (9.3-11.8)
[2024-01-20 15:06] LABS: Alanine Aminotransferase 163 U/L (7-40); Albumin 3.7 g/dL (3.2-4.8); Alkaline Phosphatase 635 U/L (46-116); Anion Gap 10 (5-15); BUN/Creatinine Ratio 21.5 (10.0-20.0); Bilirubin, Total 0.5 mg/dL (0.2-1.0); Blood Urea Nitrogen 31 mg/dL (9-23); Calcium 9.1 mg/dL (8.7-10.4); Carbon Dioxide 24 mmol/L (20-30); Chloride 107 mmol/L (98-107); Glucose 287 mg/dL (74-106); Potassium 5.2 mmol/L (3.5-5.1); Sodium 141 mmol/L (136-145); Total Protein 6.6 g/dL (5.7-8.2)
[2024-01-20 15:40] LABS: Aspartate Aminotransferase 121 U/L (13-40)
[2024-01-20] MEDS ORDERED: TEMAZEPAM 15 MG CAP PO PRN (22:00)
[2024-01-20] MEDS ORDERED: ONDANSETRON HCL 4 MG/2 ML VIAL IV PRN (22:00)
[2024-01-20] MEDS ORDERED: DEXTROSE (50%) 50ML SYRG IV PRN (22:00)
[2024-01-20] MEDS: ACCU-CHEK COMFORT CURVE STRIP VI SCH (22:39)
[2024-01-20] MEDS: InsuLIN REG 1unit/0.01ml Soln (100units/ml) SC SCH (22:41)
[2024-01-20] MEDS: FUROSEMIDE 40 MG/4 ML VIAL IV ONE (22:41)
[2024-01-21] MEDS: NITROGLYCERIN 0.4 MG SL TAB SL PRN (02:49)
[2024-01-21 03:42] VITALS: PULSE 80; RESP 16; O2SAT 96
[2024-01-21 04:57] LABS: Basophils # (auto) 0.1 10 ^3/uL (0-0.2); Basophils % (auto) 0.9 % (0.0-2.0); Eosinophils # (auto) 0.2 10 ^3/uL (0-0.8); Eosinophils % (auto) 2.4 % (0.0-7.0); Hematocrit 27.6 % (41.0-53.0); Hemoglobin 9.4 g/dL (13.5-17.5); Lymphocytes # (auto) 0.6 10 ^3/uL (0.4-5.4); Mean Corpuscular Hemoglobin 29.5 pg (28.0-32.0); Mean Corpuscular Volume 86.8 fL (80.0-100.0); Monocytes # (auto) 0.9 10 ^3/uL (0-1.3); Monocytes % (auto) 9.1 % (0.0-12.0); Neutrophils # (auto) 8.1 10 ^3/uL (1.6-8.6); Neutrophils % (auto) 81.6 % (37.0-80.0); Platelet Count (auto) 397 10^3/uL (140-450); Red Blood Cells 3.18 10^6/uL (4.5-5.90); Red Cell Distribution Width 15.4 % (11.8-14.3); White Blood Cell 9.9 10^3/uL (4.4-10.8)
[2024-01-21 05:14] LABS: Alanine Aminotransferase 148 U/L (7-40); Albumin 3.8 g/dL (3.2-4.8); Alkaline Phosphatase 593 U/L (46-116); Anion Gap 8 (5-15); Aspartate Aminotransferase 81 U/L (13-40); BUN/Creatinine Ratio 19.9 (10.0-20.0); Blood Urea Nitrogen 28 mg/dL (9-23); Calcium 9.3 mg/dL (8.7-10.4); Carbon Dioxide 28 mmol/L (20-30); Chloride 105 mmol/L (98-107); Glucose 197 mg/dL (74-106); Potassium 4.2 mmol/L (3.5-5.1); Sodium 141 mmol/L (136-145)
[2024-01-21 05:15] LABS: Bilirubin, Total 0.6 mg/dL (0.2-1.0); Total Protein 7.2 g/dL (5.7-8.2)
[2024-01-21] MEDS: FUROSEMIDE 20 MG/2 ML VIAL IV SCH (06:03)
[2024-01-21] MEDS: MORPHINE SULFATE INJ 2 MG/ml SYRG IV PRN (06:28)
[2024-01-21 09:53] VITALS: PULSE 68; RESP 18; O2SAT 98
[2024-01-21] MEDS: LOSARTAN POTASSIUM 50 MG TAB PO SCH (10:21)
[2024-01-21] MEDS: ASPirin 81 mg TAB PO SCH (10:21)
[2024-01-21] MEDS: METOPROLOL SUCCINATE XL 50 MG TAB PO SCH (10:22)
[2024-01-21] MEDS: CLOPIDOGREL BISULFATE 75 MG TAB PO SCH (10:22)
[2024-01-21] MEDS ORDERED: acetaZOLAMIDE 250 MG TAB PO SCH (14:30)
[2024-01-21] MEDS: SPIRONOLACTONE 25 MG TAB PO ONE (16:06)
[2024-01-21 17:22] VITALS: BP 164/87; PULSE 75; RESP 16; TEMP 98.3; O2SAT 95
[2024-01-21 17:32] VITALS: BP 164/87; PULSE 75; RESP 16; TEMP 98.3; O2SAT 95
[2024-01-21] MEDS ORDERED: hydrALAZINE HCL 20 MG/ML VL IV PRN (18:00)
[2024-01-21 19:06] LABS: Urine Bacteria None Seen /hpf (None Seen)
[2024-01-21 19:20] LABS: Urine Blood 1+ /uL (Negative); Urine Clarity Clear (Clear); Urine Color Light-Yellow (Yellow); Urine Protein, UAD 2+ (Negative); Urine Specific Gravity 1.022 (1.001-1.035); Urine Urobilinogen Normal (Negative); Urine WBC 1 /hpf (0 - 3)
[2024-01-21 20:00] VITALS: PULSE 77; RESP 19; O2SAT 97
[2024-01-21] MEDS: ATORVASTATIN 20 MG TAB PO SCH (20:52)
[2024-01-21 21:00] VITALS: BP 153/78; PULSE 77; RESP 18; TEMP 98.1; O2SAT 95
[2024-01-21] MEDS ORDERED: traMADol HCL 50 MG TAB PO PRN (21:00)
[2024-01-21] MEDS: hydrALAZINE HCL 10 MG TAB PO SCH (23:01)
[2024-01-21] MEDS: INSULIN LANTUS (GLARGINE) 1 /0.01ml (100units/ml) SC SCH (23:01)
[2024-01-22] VITALS (8 sets, daily range): BP systolic 114–144; BP diastolic 57–81; PULSE 67–88; RESP 16–18; TEMP 97.7–98.5; O2SAT 90–99
[2024-01-22 07:38] LABS: Basophils # (auto) 0.1 10 ^3/uL (0-0.2); Basophils % (auto) 0.6 % (0.0-2.0); Eosinophils # (auto) 0.2 10 ^3/uL (0-0.8); Eosinophils % (auto) 1.9 % (0.0-7.0); Hematocrit 30.9 % (41.0-53.0); Hemoglobin 9.9 g/dL (13.5-17.5); Lymphocytes # (auto) 0.8 10 ^3/uL (0.4-5.4); Lymphocytes % (auto) 7.6 % (10.0-50.0); Mean Corpuscular Hgb Conc. 32.1 g/dL (32.0-36.0); Mean Corpuscular Volume 87.1 fL (80.0-100.0); Monocytes # (auto) 0.9 10 ^3/uL (0-1.3); Monocytes % (auto) 8.3 % (0.0-12.0); Neutrophils # (auto) 8.5 10 ^3/uL (1.6-8.6); Neutrophils % (auto) 81.6 % (37.0-80.0); Nucleated Red Blood Cells % 0.1 %; Platelet Count (auto) 427 10^3/uL (140-450); Red Blood Cells 3.55 10^6/uL (4.5-5.90); Red Cell Distribution Width 15.6 % (11.8-14.3); White Blood Cell 10.4 10^3/uL (4.4-10.8)
[2024-01-22 07:46] LABS: Alanine Aminotransferase 105 U/L (7-40); Albumin 3.8 g/dL (3.2-4.8); Alkaline Phosphatase 563 U/L (46-116); Anion Gap 5 (5-15); Aspartate Aminotransferase 49 U/L (13-40); BUN/Creatinine Ratio 19.3 (10.0-20.0); Bilirubin, Total 0.6 mg/dL (0.2-1.0); Blood Urea Nitrogen 29 mg/dL (9-23); Calcium 9.6 mg/dL (8.7-10.4); Carbon Dioxide 28 mmol/L (20-30); Chloride 102 mmol/L (98-107); Glucose 252 mg/dL (74-106); Potassium 4.7 mmol/L (3.5-5.1)
[2024-01-22 07:47] LABS: Sodium 135 mmol/L (136-145)
[2024-01-22] MEDS: EMPAGLIFLOZIN 10 MG TAB PO SCH (09:10)
[2024-01-22] MEDS: SPIRONOLACTONE 25 MG TAB PO SCH (09:11)
[2024-01-22] MEDS: ISOSORBIDE MONONITRATE ER 60 MG TAB PO SCH (09:18)
[2024-01-22] MEDS ORDERED: NITROGLYCERIN 0.2MG/HR TOPICAL PATCH TD SCH (10:00)
[2024-01-22] MEDS: INSULIN LANTUS (GLARGINE) 1 /0.01ml (100units/ml) SC SCH (10:32)
[2024-01-22 10:33] LABS: % Iron Saturation 23.3 % (20-55)
[2024-01-22] MEDS: INSULIN LANTUS (GLARGINE) 1 /0.01ml (100units/ml) SC ONE (18:26)
[2024-01-22] MEDS: hydrALAZINE HCL 25 MG TAB PO SCH (23:21)
[2024-01-23] VITALS (7 sets, daily range): BP systolic 119–159; BP diastolic 66–75; PULSE 73–79; RESP 14–18; TEMP 98–98.3; O2SAT 90–95
[2024-01-23 06:30] LABS: Alanine Aminotransferase 70 U/L (7-40); Albumin 3.5 g/dL (3.2-4.8); Alkaline Phosphatase 437 U/L (46-116); Anion Gap 7 (5-15); Aspartate Aminotransferase 18 U/L (13-40); BUN/Creatinine Ratio 26.1 (10.0-20.0); Bilirubin, Total 0.5 mg/dL (0.2-1.0); Blood Urea Nitrogen 35 mg/dL (9-23); Calcium 9.3 mg/dL (8.7-10.4); Carbon Dioxide 29 mmol/L (20-30); Chloride 106 mmol/L (98-107); Potassium 4.2 mmol/L (3.5-5.1); Sodium 142 mmol/L (136-145); Total Protein 6.5 g/dL (5.7-8.2)
[2024-01-23 06:34] LABS: Glucose 147 mg/dL (74-106)
[2024-01-23] MEDS: INSULIN LANTUS (GLARGINE) 1 /0.01ml (100units/ml) SC SCH (11:57)
[2024-01-23] MEDS: SPIRONOLACTONE 25 MG TAB PO SCH (11:58)
[2024-01-23] MEDS ORDERED: FURO1TAB31 PO (12:17)
[2024-01-23] MEDS ORDERED: ISOS1TAB28 PO (12:17)
[2024-01-23] MEDS ORDERED: ATOR-507 PO (12:17)
[2024-01-23] MEDS ORDERED: HYDR25TA87 PO (12:17)
[2024-01-23] MEDS: FUROSEMIDE 20 MG TAB PO SCH (18:00)
== END 2024-01-23 19:30 | disposition home or self-care (01) | DRG 194 ==
LOC: ER 14:07 → TELE 22:06 → TELE-E-ADS 01-21 17:16 → EAST 01-22 14:26
PROVIDERS: ADMIT Internal Medicine; ATTEND Internal Medicine
DX: I13.0 Hypertensive heart and chronic kidney disease with heart failure and stage 1 through stage 4 chronic kidney disease, or unspecified chronic kidney disease (principal); N17.0 Acute kidney failure with tubular necrosis; J90 Pleural effusion, not elsewhere classified; D64.9 Anemia, unspecified; E11.22 Type 2 diabetes mellitus with diabetic chronic kidney disease; E66.9 Obesity, unspecified; I50.33 Acute on chronic diastolic (congestive) heart failure; E78.5 Hyperlipidemia, unspecified; I25.118 Atherosclerotic heart disease of native coronary artery with other forms of angina pectoris; J98.11 Atelectasis; I16.1 Hypertensive emergency; R74.01 Elevation of levels of liver transaminase levels; G47.00 Insomnia, unspecified; E87.5 Hyperkalemia; I25.10 Atherosclerotic heart disease of native coronary artery without angina pectoris; N18.30 Chronic kidney disease, stage 3 unspecified; Z79.4 Long term (current) use of insulin; Z98.61 Coronary angioplasty status; Z90.49 Acquired absence of other specified parts of digestive tract; Z85.038 Personal history of other malignant neoplasm of large intestine; Z68.27 Body mass index [BMI] 27.0-27.9, adult
CPT/HCPCS: 36415; 71045; 71275; 80053; 81001; 82962; 83540; 83550; 83880; 84484; 85025; 85379; 85610; 85730; 86850; 86900; 86901; 93306; 96374; G0378; J1815

== ENCOUNTER 2025-03-22 03:10 | Emergency (ER) | payer MEDICAID ==
[~2025-03-22] VITALS: Ht 167.6 cm; Wt 86.3 kg
[~2025-03-22 03:10] MED LIST changes: +ATOR-507 PO; +FURO1TAB31 PO; -FURO1TAB33 PO; +HYDR25TA87 PO; +ISOS1TAB28 PO
--- NOTE | 2025-03-22 03:22 | ECG ---
[facility] Test Date: 2025-03-22 Test Time: 03:15:32 Pat Name: KRUPA BANEGAS Department: ED Room: Gender: M Match Marker: ANAIS : 1965 Requested By: EMERGENCY EMERGENCY Order Number: [id number] Reading MD: Hai Woodson Measurements Intervals Arnold Rate: 99 P: 71 MT: 197 QRS: -84 QRSD: 89 T: 69 QT: 370 QTc: 475 Interpretive Statements Sinus rhythm Left anterior fascicular block Probable anteroseptal infarct, old Electronically Signed On 03-23-2025 15:24:05 PDT by Hai Woodson Please click the below link to view image of tracing.
--- NOTE | 2025-03-22 04:54 | ED.PDOC ---
History of Present Illness HPI Comments 60 y/o M presents with c/c of shortness of breath and nausea for 2x days. Significant history for CAD, cancer, CHF, DM, HTN, and PTCA. Chief Complaint: Shortness of Breath Time Seen by MD: 03:20 Primary Care Provider: Felix Reviewed Notes: Nurses Notes, Medications, Allergies Allergies: Coded Allergies: NO KNOWN ALLERGIES (Unverified , 11/26/23) Home Meds Active Scripts Atorvastatin Calcium (Lipitor) 40 Mg Tab, 40 MG PO QPM for 30 Days, #30 TAB 3 Refills Prov:BARB RINCON MD 01/23/24 Isosorbide Mononitrate (Isosorbide Mononitrate Er) 30 Mg Tab, 30 MG PO DAILY for 30 Days, #30 TAB 3 Refills Prov:BARB RINCON MD 01/23/24 Hydralazine HCl (Hydralazine HCl) 25 Mg Tab, 25 MG PO BID for 30 Days, #60 TAB 3 Refills Prov:BARB RINCON MD 01/23/24 Furosemide (Lasix) 40 Mg Tab, 40 MG PO QAM for 30 Days, #30 TAB 3 Refills Prov:BARB RINCON MD 01/23/24 Naproxen (NAPROSYN TABLET) 500 Mg Tb, 500 MG GT BID for 30 Days, #60 TAB Prov:BREE CALHOUN MD 01/14/24 Sacubitril-Valsartan (Entresto 24-26 mg) 1 Tab Tab, 1 TAB PO BID for 90 Days, #180 TAB Prov:ANA PRABHAKAR 12/28/23 Metoprolol Succinate (Toprol Xl) 50 Mg Tab, 25 MG PO DAILY for 90 Days, #90 TAB Prov:ANA PRABHAKAR 12/28/23 Clopidogrel Bisulfate (CLOPIDOGREL) 75 Mg Tab, 75 MG PO DAILY for 90 Days, #90 TAB 3 Refills Prov:ANA PRABHAKAR 12/28/23 Aspirin (Aspirin Low Dose) 81 Mg Tab, 81 MG PO DAILY for 90 Days, #90 TAB Prov:ANA PRABHAKAR 12/28/23 Hydrocodone-Acetaminophen (Hydrocodone Bitartrate/AC 10-325 mg) 1 Tab Tab, 1 TAB PO Q6HPRN PRN, #20 TAB Prov:TAE DIAZ PAC 12/18/23 Reported Medications Acetaminophen (Acetaminophen Er) 650 Mg Tab, 1 TAB PO Q8HR for 30 Days, #90 11/27/23 Dapagliflozin Propanediol (Farxiga) 10 Mg Tab, 1 TAB PO DAILY 11/27/23 Metformin Hydrochloride (Metformin Hcl) 500 Mg Tab, 1000 MG PO BIDWM 11/27/23 Insulin Glargine (Basaglar Kwikpen) 100 Unit/Ml Inj, 40 UNIT SC DAILY 11/27/23 Cholecalciferol (D-3-5) 5,000 Unit Cap, 1 CAP PO DAILY 11/27/23 Losartan Potassium (Losartan Potassium) 100 Mg Tab, 1 TAB PO DAILY 11/26/23 Information Source: Patient Mode of Arrival: Ambulatory Severity: Moderate Timing: Hours Duration: Since onset Prehospital treatment: None Past Medical History PAST MEDICAL HISTORY: CAD, Cancer, CHF, DM, HTN Surgical History: Appendectomy, PTCA Family History Family History: Unknown Social History Smoker: Non-Smoker Alcohol: Denies ETOH Use Drugs: Denies Drug Use Lives In: Home All Other Systems: Reviewed and Negative (Comprehensive review of systems are negative unless stated in HPI) Physical Exam General Appearance: No Apparent Distress, Obese HEENT: Normal ENT Inspection, Pharynx Normal, TMs Normal Neck: Full Range of Motion, Non-Tender, Normal, Normal Inspection Respiratory: Chest Non-Tender, Lungs Clear, No Accessory Muscle Use, No Respiratory Distress, Normal Breath Sounds Cardiovascular: No Edema, No JVD, No Murmur, No Gallop, Normal Peripheral Pulses, Regular Rate/Rhythm Breast Exam: Deferred Gastrointestinal: No Organomegaly, Non Tender, No Pulsatile Mass, Normal Bowel Sounds, Soft Genitalia: Deferred Pelvic: Deferred Rectal: Deferred Extremities: No calf tenderness, Normal capillary refill, Normal inspection, Normal range of motion, Non-tender, No pedal edema Musculoskeletal : Apperance: Normal 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 Was a procedure done?: No Differential Dx Considerations may include: acute CHF exacerbation, URI, PNA, viral syndrome, [place], PE, ACS, among others X-Ray, Labs, Meds, VS Vital Signs Date Time Temp Pulse Resp B/P (MAP) Pulse Ox O2 Delivery O2 Flow Rate FiO2 03/22/25 03:15 99 03/22/25 03:14 98.3 94 20 195/100 98 98.3 Lab Test 03/22/25 05:16 03/22/25 04:20 Range/Units Troponin I High Sensitivity 11 14 </=54 ng/L White Blood Count 8.3 4.4-10.8 10^3/uL Red Blood Count 4.43 L 4.5-5.90 10^6/uL Hemoglobin 13.4 L 13.5-17.5 g/dL Hematocrit 39.4 L 41.0-53.0 % Mean Corpuscular Volume 89.0 80.0-100.0 fL Mean Corpuscular Hemoglobin 30.2 28.0-32.0 pg Mean Corpuscular Hemoglobin Concent 34.0 32.0-36.0 g/dL Red Cell Distribution Width 13.5 11.8-14.3 % Platelet Count 351 140-450 10^3/uL Mean Platelet Volume 7.3 6.9-10.8 fL Neutrophils (%) (Auto) 74.3 37.0-80.0 % Lymphocytes (%) (Auto) 14.5 10.0-50.0 % Monocytes (%) (Auto) 7.6 0.0-12.0 % Eosinophils (%) (Auto) 2.8 0.0-7.0 % Basophils (%) (Auto) 0.8 0.0-2.0 % Neutrophils # (Auto) 6.1 1.6-8.6 10 ^3/uL Lymphocytes # (Auto) 1.2 0.4-5.4 10 ^3/uL Monocytes # (Auto) 0.6 0-1.3 10 ^3/uL Eosinophils # (Auto) 0.2 0-0.8 10 ^3/uL Basophils # (Auto) 0.1 0-0.2 10 ^3/uL Nucleated Red Blood Cells 0.0 % Sodium Level 141 136-145 mmol/L Potassium Level 4.5 3.5-5.1 mmol/L Chloride Level 105 98-107 mmol/L Carbon Dioxide Level 28 20-31 mmol/L Anion Gap 8 5-15 Blood Urea Nitrogen 18 9-23 mg/dL Creatinine 1.27 0.700-1.30 mg/dL Glomerular Filtration Rate Calc 64 >90 mL/min BUN/Creatinine Ratio 14.2 10.0-20.0 Serum Glucose 171 H 74-106 mg/dL Calcium Level 9.6 8.7-10.4 mg/dL Total Bilirubin 0.9 0.2-1.0 mg/dL Aspartate Amino Transferase (AST) 22 13-40 U/L Alanine Aminotransferase (ALT) 20 7-40 U/L Alkaline Phosphatase 95 46-116 U/L B-Type Natriuretic Peptide 29.12 0-100 pg/mL Total Protein 7.7 5.7-8.2 g/dL Albumin 4.6 3.2-4.8 g/dL [place] [address] Ph: [phone] DIAGNOSTIC IMAGING Diagnostic Imaging Report : [id number] Signed PATIENT: KRUPA BANEGAS ACCT: [id number] UNIT: [id number] : 1965 LOC: ER ROOM / BED: / AGE / SEX: 60 / M ADM STATUS: REG ER SERVICE [id number] ORDERING PHYSICIAN: TREY HAMLIN MD PROCEDURE(s): CXR1 - CHEST XRAY 1 VIEW REASON: SOB ORDER NUMBER(s): [id number], ACCESSION NUMBER(s): [id number] CHEST RADIOGRAPH Indication: SOB Technique: Single frontal view of the chest was obtained COMPARISON: XR CHEST 2 VIEWS on DOS: 11/10/24, XR CHEST 1 VIEW on DOS: 10/17/24, XR CHEST 1 VIEW on DOS: 07/30/24, XY CHEST PORTABLE on DOS: 01/20/24, XY CHEST JESSE BLE on DOS: 01/13/24 FINDINGS: Lines and Tubes: None Lungs: Clear Pleura: No effusion. No pneumothorax. Cardiomediastinal contours: Unremarkable Bones: Unremarkable IMPRESSION: 1. No acute disease. ATED BY: PEDRO PABLO MARIEE MD DICTATED DATE/TIME: 03/22/25508 SIGNED BY: PEDRO PABLO MARIEE MD SIGNED DATE/TIME: 03/22/25508 CC: Time of 1ST Reevaluation: 03:50 Reevaluation 1ST: Unchanged Patient Education/Counseling: Diagnosis, Treatment, Need For Follow Up Family Education/Counseling: No Family Present SEPSIS Sepsis Screen Date sepsis recognized/suspect: Mar 22, 2025 Time Sepsis recognized/suspect: 314 Recent Procedure: No On Antibiotic Therapy: No Respiratory Rate >20: No Heart Rate >90: No Temp<36 C (96.8 F) or >38.3 C: No SBP <90 or MAP <65 mmHG: No New Acute Mental Status Change: No Is the patient on CPAP, BIPAP,: No Physician Orders Troponin-I Hs (03/22/25 06:22) Chest Xray 1 View (03/22/25 03:22) Vital Signs Date Time Temp Pulse Resp B/P (MAP) Pulse Ox O2 Delivery O2 Flow Rate FiO2 03/22/25 03:15 99 03/22/25 03:14 98.3 94 20 195/100 98 98.3 Laboratory Tests Test 03/22/25 04:20 White Blood Count 8.3 10^3/uL (4.4-10.8) Departure 1 Departure Time of Disposition: 05:47 Impression: Primary Impression: Dyspnea Disposition: 01 HOME / SELF CARE / HOMELESS Condition: Stable Discharged With: Self Critical Care Note Critical Care Time?: No Stability Stability form required: No Heart Score Heart Score: Heart Score Response (Comments) Value History N/A 0 EKG N/A 0 Age N/A 0 Risk Factors N/A 0 Troponin N/A 0 Total 0 I personally scribed for TREY HAMLIN MD ([email or web address]) on 03/22/25 at 04:54. Electronically submitted by Berry Carson ([email or web address]). I personally scribed for TREY HAMLIN MD ([email or web address]) on 03/22/25 at 05:43. Electronically submitted by Berry Carson ([email or web address]). TREY HAMLIN MD Mar 22, 2025 04:54
[2025-03-22 05:01] LABS: Hematocrit 39.4 % (41.0-53.0); Hemoglobin 13.4 g/dL (13.5-17.5); Mean Corpuscular Hemoglobin 30.2 pg (28.0-32.0); Mean Corpuscular Volume 89.0 fL (80.0-100.0); Nucleated Red Blood Cells % 0.0 %
--- NOTE | 2025-03-22 05:12 | DVH ---
CHEST RADIOGRAPH Indication: SOB Technique: Single frontal view of the chest was obtained COMPARISON: XR CHEST 2 VIEWS on DOS: 11/10/24, XR CHEST 1 VIEW on DOS: 10/17/24, XR CHEST 1 VIEW on DOS: 07/30/24, XY CHEST PORTABLE on DOS: 01/20/24, XY CHEST PORTABLE on DOS: 01/13/24 FINDINGS: Lines and Tubes: None Lungs: Clear Pleura: No effusion. No pneumothorax. Cardiomediastinal contours: Unremarkable Bones: Unremarkable IMPRESSION: 1. No acute disease.
[2025-03-22 05:15] LABS: Alanine Aminotransferase 20 U/L (7-40); Albumin 4.6 g/dL (3.2-4.8); Alkaline Phosphatase 95 U/L (46-116); Anion Gap 8 (5-15); BUN/Creatinine Ratio 14.2 (10.0-20.0); Blood Urea Nitrogen 18 mg/dL (9-23); Calcium 9.6 mg/dL (8.7-10.4); Carbon Dioxide 28 mmol/L (20-31); Chloride 105 mmol/L (98-107); Potassium 4.5 mmol/L (3.5-5.1); Sodium 141 mmol/L (136-145); Total Protein 7.7 g/dL (5.7-8.2)
[2025-03-22 05:16] LABS: Bilirubin, Total 0.9 mg/dL (0.2-1.0)
[2025-03-22 05:19] LABS: Glucose 171 mg/dL (74-106)
[2025-03-22 06:47] VITALS: BP 156/90; PULSE 85; RESP 19; TEMP 98.2; O2SAT 95
== END 2025-03-22 06:47 | disposition home or self-care (01) ==
LOC: ER 03:10
DX: R06.00 Dyspnea, unspecified (principal); I25.10 Atherosclerotic heart disease of native coronary artery without angina pectoris; I11.0 Hypertensive heart disease with heart failure; I50.9 Heart failure, unspecified; E11.9 Type 2 diabetes mellitus without complications; Z79.899 Other long term (current) drug therapy; Z90.49 Acquired absence of other specified parts of digestive tract
CPT/HCPCS: 36415; 71045; 80053; 83880; 84484; 85025; 93005